=== PATIENT | male | born 1950 | race Hispanic/Latino ===

== ENCOUNTER 2018-05-11 11:36 | Inpatient (IN) | payer MEDICARE, MEDICAID ==
[2018-04-09 09:51] VITALS: BMI 33.6
[2018-05-11] MEDS ORDERED: Bupivacaine 0.5% Inj(30mL) ONE ×2 (12:06→12:55)
[2018-05-11] MEDS ORDERED: Propofol 10 mg/ml Inj (20 ML) ONE (13:22)
[2018-05-11] MEDS ORDERED: Succinylcholine 200 mg/10 ml Inj IV ONE (13:22)
[2018-05-11] MEDS ORDERED: Midazolam 2 MG/2 ML VIAL ONE (13:22)
[2018-05-11] MEDS ORDERED: Rocuronium 10 mg/ml (5 ml) ONE (13:34)
[2018-05-11] MEDS ORDERED: Bupivacaine 0.25% Inj(30mL) ONE (13:40)
[2018-05-11] MEDS ORDERED: Bupivacaine 0.5% Inj(30mL) IJ ONE (14:01)
[2018-05-11] MEDS ORDERED: Neostigmine Methylsulfate 3mg/3ml Syringe IV ONE ×2 (14:44→14:57)
[2018-05-11] MEDS ORDERED: HYDROmorphone 0.5 mg/0.5 ml ISec IVP PRN (15:01)
--- NOTE | 2018-05-11 15:03 | PCM.SURG1 ---
Surgeon's Initial Post Op Note - Surgeon's Notes Surgeon: Dr. Anderson Sales Assistant Displays: Ashley rainey, PGY 2 Magaly Burden PGY1 Kodi Piper MS3 Type of Anesthesia: General Endo Pre-Operative Diagnosis: Umbilical hernia Operative Findings: same Post-Operative Diagnosis: umbilical hernia repair Operation Performed: umbilical hernia reapir with mesh Specimen/Specimens Removed: hernia sac Estimated Blood Loss: EBL {In ML}: 5 Blood Products Given: N/A Drains Used: Rola (red rubber catheter not rola) Post-Op Condition: Fair Date of Surgery/Procedure: 05/11/18 Time of Surgery/Procedure: 13:30
[2018-05-11] MEDS ORDERED: Morphine 4 mg/ml ISec IVP PRN (15:09)
[2018-05-11] MEDS: Insulin Reg-MEDIUM-Coverage SC SCH (17:00)
[2018-05-11] MEDS: Lactated Ringer's 1,000 ML IV SCH (18:08)
[2018-05-11] MEDS ORDERED: Albuterol-Ipratrop 3 mg / 0.5 (3 ml) UD IH SCH (20:00)
[2018-05-11] MEDS: Divalproex 250 mg ER (ONCE DAILY formulation) PO SCH (21:42)
[2018-05-11] MEDS: Insulin Detemir 100 units/ml Vial (Levemir) SC SCH (21:42)
[2018-05-11] MEDS: Enoxaparin 30 mg Syringe SC SCH (21:42)
[2018-05-11] MEDS ORDERED: Pneumococcal 23-Valent Vaccine IM ONE (23:17)
[2018-05-12] MEDS: Insulin Reg-MEDIUM-Coverage SC SCH ×4 (02:33→17:17)
[2018-05-12 07:37] LABS: BASO # 0.03 K/mm3 (0.0-2.0); BASO % 0.2 % (0.0-3.0); EOS # 0.1 (0.0-0.7); EOS % 0.7 % (1.5-5.0); GRAN # 9.07 (1.4-6.5); GRAN % 75.5 % (50.0-68.0); HEMOGLOBIN 12.7 g/dL (14.0-18.0); LYMPH # 1.5 (1.2-3.4); LYMPH % 12.2 % (22.0-35.0); MEAN CELL VOLUME 88.9 fl (80.0-105.0); MEAN CORPUSCULAR HEMOGLOBIN 28.7 pg (25.0-35.0); MEAN CORPUSCULAR HGB CONC 32.3 g/dl (31.0-37.0); MEAN PLATELET VOLUME 8.5 fl (7.0-11.0); MONO # 1.4 (0.1-0.6); MONO % 11.4 % (1.0-6.0); RBC 4.42 10^6/uL (3.5-6.1); RED CELL DISTRIBUTION WIDTH 14.2 % (11.5-14.5)
[2018-05-12 07:48] LABS: BLOOD UREA NITROGEN 14 mg/dL (7-21); CALCIUM 9.1 mg/dL (8.4-10.5); GFR AFRICAN-AMERICAN > 60; GFR NON-AFRICAN AMERICAN > 60; HDL CHOLESTEROL 34 mg/dL (29-60)
[2018-05-12 07:49] LABS: IRON 38 ug/dL (45-180)
[2018-05-12 07:58] LABS: % IRON SATURATION 12 % (20-55); LDL CHOLESTEROL 80 mg/dL (0-129); TOTAL IRON BINDING CAPACITY 321 ug/dL (261-462)
[2018-05-12] MEDS: Insulin Detemir 100 units/ml Vial (Levemir) SC SCH ×2 (08:08→22:49)
--- NOTE | 2018-05-12 08:22 | HP ---
DATE OF EXAM: 05/11/2018 The patient is a 67-year-old male. The patient was seen and examined on the bedside by me on 05/11/2018. CHIEF COMPLAINTS: Abdominal pain, anterior abdominal wall hernia. HISTORY OF PRESENT ILLNESS: Mr. Navarro Rudolph is a 67-year-old male with past medical history of hypertension, history of COPD, asthma, BPH, diabetes mellitus, depression, hypercholesterolemia and hypertriglyceridemia, came to [facility] for surgery by Dr. Kirill Anderson. Surgery is done. I saw the patient. He is having abdominal pain. Hungry, wanted to eat. Liquid diet offered. Patient has history of asthma, but right now, no shortness of breath, sometime coughing. No fever, no chills. PAST MEDICAL HISTORY: As above, history of depression, diabetes mellitus, hypertension, hypercholesterolemia, hypertriglyceridemia, vitamin D deficiency. ALLERGIES: PATIENT IS NOT ALLERGIC WITH ANY MEDICATION. FAMILY HISTORY: Father and mother, noncontributory. HABITS: Smoking, yes. Drugs, no. Ethanol, no. REVIEW OF SYSTEMS: The patient was seen and examined on the bedside. Looking comfortable. Hungry. Complaining about abdominal pain. Having a dressing applied on the abdomen. No fever. No chills. No nausea, vomiting or diarrhea. No hematuria or hematochezia. No headache or dizziness. No chest pain. No palpitation. PHYSICAL EXAMINATION: VITAL SIGNS: Temperature 98.2, pulse 81 , respiratory rate 18, blood pressure 134/72. HEENT: Head, normocephalic and atraumatic. Eyes, PERRLA. Extraocular muscles intact. Conjunctivae clear. Nose patent. Mucous membranes moist. NECK: Supple. No carotid bruits. No JVD or thyromegaly. CHEST: Bilaterally symmetrical. HEART: S1 and S2 positive. LUNGS: Clear to auscultation. ABDOMEN: Soft. Tender. Surgical site has dressing on that. No organomegaly. EXTREMITIES: No edema. No cyanosis. NEUROLOGIC: The patient is awake and alert. Moving all 4 extremities. No focal deficits. LABORATORY DATA: Blood sugar is 139, we do not have more labs, we will repeat labs. MEDICATIONS: Patient is on Colace, Cozaar, Depakote, vitamin D, DuoNeb, Flomax, Ventolin, insulin, Levemir, Lexapro, Lipitor, gemfibrozil, Lovenox, morphine, Singulair, Wellbutrin, Zofran and tramadol. ASSESSMENT AND PLAN: Mr. Navarro Rudolph is a 67-year-old male, my private patient from [facility], resident, has history of constipation, hypertension, history of depression, vitamin D deficiency, chronic obstructive pulmonary disease, asthma, benign prostatic hypertrophy, insulin-dependent diabetes mellitus that is why he is on Levemir and sliding scale, hypercholesterolemia, history of allergies and nauseousness, patient came for surgery, done by Dr. Kirill Anderson, repair of the incarcerated ventral hernia with mesh placement off and on acute pain relief system, another was hernia repair ventral big mesh. Gastrointestinal, deep venous thrombosis prophylaxis. Noted Dr. Kirill Anderson' reporting. Out of bed, physical therapy. Diet as tolerated. We will repeat labs. We will follow up. Sarah Young MD
[2018-05-12] MEDS: Enoxaparin 30 mg Syringe SC SCH ×2 (10:49→22:49)
[2018-05-12] MEDS: buPROPion 300 mg/24 Hours XL Tab PO SCH (11:09)
[2018-05-12] MEDS: Divalproex 250 mg ER (ONCE DAILY formulation) PO SCH ×2 (11:10→18:39)
[2018-05-12] MEDS: FLUTICASONE IH SCH (11:57)
[2018-05-12] MEDS: VILANTEROL IH SCH (11:57)
--- NOTE | 2018-05-12 12:22 | CP.PCM.PN ---
Subjective - Date & Time of Evaluation Date of Evaluation: 05/12/18 Time of Evaluation: 09:30 - Subjective Subjective: Pt seen examined at bedside this AM. patient denies any SOB, chest pain, and minimal abdominal pain, no nausea, vomiting, and tolerated CLD well Objective - Vital Signs/Intake and Output Vital Signs (last 24 hours): Temp Pulse Resp BP Pulse Ox 98 F 76 20 115/65 95 05/12/18 06:00 05/12/18 10:50 05/12/18 06:00 05/12/18 10:50 05/12/18 06:00 Intake and Output: 05/12/18 05/12/18 06:59 18:59 Intake Total 480 Output Total 1500 Balance -1020 - Medications Medications: Current Medications Albuterol/Ipratropium (Duoneb 3 Mg/0.5 Mg (3 Ml) Ud) 3 ml IH BIDRESP BÁRBARA Atorvastatin Calcium (Lipitor) 5 mg PO DAILY [facility] Last Admin: 05/12/18 10:48 Dose: 5 mg Bupropion HCl (Wellbutrin Xl) 300 mg PO QAM [facility] Last Admin: 05/12/18 11:09 Dose: 300 mg Divalproex Sodium (Depakote Er(Once Daily)) 250 mg PO BID BÁRBARA PRN Reason: Protocol Last Admin: 05/12/18 11:10 Dose: 250 mg Docusate Sodium (Colace) 100 mg PO DAILY [facility] Last Admin: 05/12/18 10:49 Dose: 100 mg Enoxaparin Sodium (Lovenox) 30 mg SC 1000,2200 [facility] PRN Reason: Protocol Last Admin: 05/12/18 10:49 Dose: 30 mg Ergocalciferol (Drisdol 50,000 Intl Units Cap) 1 cap PO Th@1000 [facility] Escitalopram Oxalate (Lexapro) 20 mg PO DAILY [facility] Last Admin: 05/12/18 10:49 Dose: 20 mg Gemfibrozil (Lopid) 600 mg PO BID [facility] Last Admin: 05/12/18 10:50 Dose: 600 mg Insulin Detemir (Levemir) 7 unit SC ACBHS [facility] Last Admin: 05/12/18 08:08 Dose: 7 units Insulin Human Regular (Humulin R Med) 0 units SC ACHS [facility] PRN Reason: Protocol Last Admin: 05/12/18 08:08 Dose: 1 units Losartan Potassium (Cozaar) 50 mg PO DAILY [facility] Last Admin: 05/12/18 10:50 Dose: 50 mg Montelukast Sodium (Singulair) 10 mg PO HS [facility] Last Admin: 05/11/18 21:40 Dose: 10 mg Non-Formulary Medication (Fluticasone/Vilanterol [Breo Ellipta 100-25 Mcg Inh]) 1 inh IH DAILY [facility] Last Admin: 05/12/18 11:57 Dose: Not Given Ondansetron HCl (Zofran Inj) 4 mg IVP Q6H PRN PRN Reason: Nausea/Vomiting Tamsulosin HCl (Flomax) 0.4 mg PO DAILY [facility] Last Admin: 05/12/18 10:49 Dose: 0.4 mg Tramadol HCl (Ultram) 50 mg PO Q6H PRN PRN Reason: Pain, moderate (4-7) - Labs Labs: 05/12/18 07:00 05/12/18 07:00 - Constitutional Appears: Well, Non-toxic, No Acute Distress - Head Exam Head Exam: ATRAUMATIC, NORMOCEPHALIC - Eye Exam Eye Exam: Normal appearance. absent: Conjunctival injection, Scleral icterus - ENT Exam ENT Exam: Mucous Membranes Moist, Normal Oropharynx - Respiratory Exam Respiratory Exam: NORMAL BREATHING PATTERN. absent: Accessory Muscle Use, Respiratory Distress - Cardiovascular Exam Cardiovascular Exam: RRR - GI/Abdominal Exam GI & Abdominal Exam: Soft, Tenderness (mild tenderness around the incision). absent: Distended Additional comments: midline incisional dressing saturated with sero-sanguinous fluid, incision well approximated with daly, On q in place - Extremities Exam Extremities Exam: absent: Calf Tenderness, Pedal Edema - Neurological Exam Neurological Exam: Alert, Awake, Oriented x3 - Psychiatric Exam Psychiatric exam: Normal Affect, Normal Mood - Skin Skin Exam: Dry, Normal Color, Warm Assessment and Plan - Assessment and Plan (Free Text) Assessment: 67M POD#1 s/p umbilical hernia with mesh. History of COPD, HTN, DM, and obesity Plan: Patient recovering well with continuing concern for respiratory status post operatively considering patient's poor baseline pulmonary function. Plan to keep patient overnight, monitor diet tolerance and ensure ambulation and pain control F/U pulmonary and medicine recs--appreciated advance to HHD/CCD D/C acosta--will monitor for voiding afterwards Discussed with Dr. Justin Sanches, PGY2
[2018-05-12] MEDS: Albuterol-Ipratrop 3 mg / 0.5 (3 ml) UD IH SCH ×2 (12:33→20:10)
[2018-05-12 12:35] LABS: FOLATE 13.8 ng/mL
[2018-05-12] MEDS: Lactated Ringer's 1,000 ML IV SCH (20:39)
[2018-05-12 23:14] VITALS: O2SAT 96
--- NOTE | 2018-05-13 01:17 | CON ---
DATE: 05/12/2017 PULMONARY CONSULTATION REFERRING PHYSICIAN: Dr. Anderson. REASON FOR CONSULTATION: Chronic obstructive lung disease, obstructive sleep apnea syndrome. HISTORY OF PRESENT ILLNESS: This is a 67-year-old gentleman, who is known to me from office and previous admission, status post hernia repair, active smoker, chronic lung disease, hypertension, BPH, diabetes, history of depression, sitting up in a chair, nursing staff at bedside, wants to go home. Does have a cough and shortness of breath. No chest pain. Mild abdominal discomfort. No dysuria. PAST MEDICAL HISTORY: Chronic obstructive lung disease, hypertension, diabetes, depression, hyperlipidemia, sleep apnea syndrome, vitamin D deficiency, status post hernia repair. ALLERGIES: NONE KNOWN. SOCIAL HISTORY: Active smoker. Denies any alcohol use. FAMILY HISTORY: No significant cardiopulmonary disease reported. MEDICATIONS: He is on Colace 100 mg daily, Cozaar 50 mg daily, Depakote 250 mg twice a day, vitamin D 50,000 units weekly, DuoNeb twice a day, Flomax 0.4 mg daily, getting Breo Ellipta 1 puff daily, Levemir 7 units subcu a.c.b, Lexapro 20 mg daily, Lipitor 5 mg daily, Lopid 600 mg twice a day, Lovenox 30 mg subcu twice a day, Singulair 10 mg daily, Ultram 50 mg every 6 hours p.r.n., Wellbutrin XL 300 mg daily, Zofran on p.r.n. basis. REVIEW OF SYSTEM: No headache, no rhinitis. Has some cough and shortness of breath. No chest pain. discomfort. No dysuria. No leg pain or leg swelling. PHYSICAL EXAMINATION: GENERAL: No acute distress. VITAL SIGNS: Temperature is 99, heart rate 67, respiratory rate 18, blood pressure 118/65, pulse ox 96% on 2 liters nasal canula. HEENT: Moist mucous membrane. Crowded airway. NECK: Supple. No JVD. LUNGS: Have prolonged expiratory phase with few rhonchi. HEART: S1 and S2. ABDOMEN: Has a dressing on incision site, large belly, soft. EXTREMITIES: There is not much edema. NEUROLOGIC: Awake and alert. Follows simple commands. LABORATORY DATA: Shows hemoglobin 12.7, hematocrit 39.3, WBC 12, platelet is 303. Sodium 139, potassium 4.3, chloride of 98, bicarbonate 31, BUN 14, creatinine 0.9, glucose is 139, hemoglobin A1c 8.4, calcium 9.1, phosphorus 3.1, magnesium 2.2. Iron 38. Triglyceride 271. B12 of 449. Folate is 13.8. IMPRESSION AND PLAN: Status post ventral hernia repair, chronic obstructive lung disease, obesity, depression, diabetes, hypertension, hyperlipidemia, sleep apnea syndrome. Case discussed with nursing staff. Agree with the present treatment. We will place him on bilevel positive airway pressure while sleeping. May give him Ambien p.r.n. for night, inhaled bronchodilator, Nicoderm patch, surgical followup, out of bed to chair. Gastric and deep venous thrombosis prophylaxis. Thank you and we will follow with you. Alan Farmer MD
[2018-05-13 06:47] LABS: HEMOGLOBIN 12.4 g/dL (14.0-18.0); MEAN CELL VOLUME 87.5 fl (80.0-105.0); MEAN CORPUSCULAR HEMOGLOBIN 28.8 pg (25.0-35.0); MEAN CORPUSCULAR HGB CONC 32.9 g/dl (31.0-37.0); MEAN PLATELET VOLUME 8.4 fl (7.0-11.0); RBC 4.31 10^6/uL (3.5-6.1); RED CELL DISTRIBUTION WIDTH 14.1 % (11.5-14.5); WHITE BLOOD COUNT 10.2 10^3/ul (4.5-11.0)
[2018-05-13 06:59] LABS: BLOOD UREA NITROGEN 13 mg/dL (7-21); CALCIUM 9.2 mg/dL (8.4-10.5); GFR AFRICAN-AMERICAN > 60; GFR NON-AFRICAN AMERICAN > 60
[2018-05-13] MEDS: Albuterol-Ipratrop 3 mg / 0.5 (3 ml) UD IH SCH (07:34)
--- NOTE | 2018-05-13 08:10 | PN ---
DATE: 05/12/2018 SUBJECTIVE: The patient was seen and examined on the bedside, looking comfortable, hungry, and tolerated clear liquid diet. Minimal abdominal pain. No hematuria or hematochezia. No swelling of the leg. No headache, no dizziness. PHYSICAL EXAMINATION: VITAL SIGNS: Temperature 98, pulse 76, respiratory rate 20, blood pressure 115/65, pulse oximetry 95. HEENT: Head; normocephalic, atraumatic. Eyes; PERRLA. Extraocular muscles intact. Conjunctivae clear. Nose patent. Mucous membranes moist. NECK: Supple. No carotid bruit. No JVD or thyromegaly. CHEST: Bilaterally symmetrical. HEART: S1 and S2 positive. LUNGS: Clear to auscultation. ABDOMEN: Soft. Tender at surgical place. Having binder. EXTREMITIES: No edema. No cyanosis. NEUROLOGICAL: Patient is awake and alert. Moving all 4 extremities. No focal deficits. MEDICATIONS: Albuterol, Lipitor, Wellbutrin, Depakote, Colace, Lovenox, vitamin D, Lopid, Levemir, insulin, Cozaar, Zofran, Flomax, tramadol. LABORATORY DATA: White blood cells 12, hemoglobin 12.7, hematocrit 39.3, platelets 303. Sodium 139, potassium 4.3, BUN 14, creatinine 0.9, glucose 200. ASSESSMENT AND PLAN: Mr. Navarro Rudolph is a 67-year-old male, postoperative day 1 status post umbilical hernia with mesh, history of chronic obstructive pulmonary disease, hypertension, diabetes mellitus, obesity, hyperglycemia, leukocytosis, anemia, benign prostatic hypertrophy, hypercholesterolemia, hypertriglyceridemia, history of constipation, asthma, obesity. Patient is recovering well with continuing concern for. Diet tolerated. Clinical therapy. Followup with the pulmonary and surgical appreciated. History of blood in the urine and the patient was not able to pass the urine. Getting IV fluid. Gastrointestinal and deep venous thrombosis prophylaxis. Repeat labs. We will follow up. Sarah Young MD [place]
[2018-05-13] MEDS: Insulin Detemir 100 units/ml Vial (Levemir) SC SCH (08:24)
[2018-05-13] MEDS: Insulin Reg-MEDIUM-Coverage SC SCH ×2 (08:25→12:18)
[2018-05-13 09:55] VITALS: RESP 20; TEMP 98.4
[2018-05-13] MEDS: Divalproex 250 mg ER (ONCE DAILY formulation) PO SCH (09:55)
[2018-05-13] MEDS: Enoxaparin 30 mg Syringe SC SCH (09:55)
[2018-05-13] MEDS: VILANTEROL IH SCH (09:56)
[2018-05-13] MEDS: FLUTICASONE IH SCH (09:56)
[2018-05-13] MEDS ORDERED: Ergocalciferol 50,000 Intl Units Cap PO SCH (10:00)
[2018-05-13] MEDS: buPROPion 300 mg/24 Hours XL Tab PO SCH (10:03)
[2018-05-13 10:12] VITALS: BP 146/84; PULSE 90
--- NOTE | 2018-05-13 15:43 | CP.PCM.DIS ---
Provider - Provider Date of Admission: 05/11/18 15:32 Attending physician: Kirill Anderson MD Primary care physician: Sarah Young MD Time Spent in preparation of Discharge (in minutes): 35 Diagnosis - Discharge Diagnosis (1) Umbilical hernia Status: Acute Priority: High Comment: s/p surgical repair (2) COPD (chronic obstructive pulmonary disease) Status: Chronic (3) Diabetes mellitus Status: Chronic (4) Obesity (BMI 30-39.9) Status: Chronic (5) Sleep apnea in adult Status: Chronic Hospital Course - Lab Results Lab Results: Micro Results 05/12/18 09:30 Urine Urine Culture - Preliminary Gram Positive Cocci Most Recent Lab Values WBC 10.2 10^3/ul (4.5-11.0) 05/13/18 06:20 RBC 4.31 10^6/uL (3.5-6.1) 05/13/18 06:20 Hgb 12.4 g/dL (14.0-18.0) L 05/13/18 06:20 Hct 37.7 % (42.0-52.0) L 05/13/18 06:20 MCV 87.5 fl (80.0-105.0) 05/13/18 06:20 MCH 28.8 pg (25.0-35.0) 05/13/18 06:20 MCHC 32.9 g/dl (31.0-37.0) 05/13/18 06:20 RDW 14.1 % (11.5-14.5) 05/13/18 06:20 Plt Count 288 10^3/uL (120.0-450.0) 05/13/18 06:20 MPV 8.4 fl (7.0-11.0) 05/13/18 06:20 Gran % 75.5 % (50.0-68.0) H 05/12/18 07:00 Lymph % (Auto) 12.2 % (22.0-35.0) L 05/12/18 07:00 [place] % (Auto) 11.4 % (1.0-6.0) H 05/12/18 07:00 Eos % (Auto) 0.7 % (1.5-5.0) L 05/12/18 07:00 Baso % (Auto) 0.2 % (0.0-3.0) 05/12/18 07:00 Gran # 9.07 (1.4-6.5) H 05/12/18 07:00 Lymph # (Auto) 1.5 (1.2-3.4) 05/12/18 07:00 [place] # (Auto) 1.4 (0.1-0.6) H 05/12/18 07:00 Eos # (Auto) 0.1 (0.0-0.7) 05/12/18 07:00 Baso # (Auto) 0.03 K/mm3 (0.0-2.0) 05/12/18 07:00 Sodium 141 mmol/L (132-148) 05/13/18 06:20 Potassium 4.1 mmol/L (3.6-5.0) 05/13/18 06:20 Chloride 100 mmol/L (98-107) 05/13/18 06:20 Carbon Dioxide 30 mmol/L (21-33) 05/13/18 06:20 Anion Gap 15 (10-20) 05/13/18 06:20 BUN 13 mg/dL (7-21) 05/13/18 06:20 Creatinine 0.8 mg/dl (0.8-1.5) 05/13/18 06:20 Est GFR ( Amer) > 60 05/13/18 06:20 Est GFR (Non-Af Amer) > 60 05/13/18 06:20 POC Glucose (mg/dL) 202 mg/dL (65-110) H 05/13/18 11:13 Random Glucose 188 mg/dL (70-110) H 05/13/18 06:20 Hemoglobin A1c 8.4 % (4.2-6.5) H 05/12/18 07:00 Calcium 9.2 mg/dL (8.4-10.5) 05/13/18 06:20 Phosphorus 3.1 mg/dL (2.5-4.5) 05/12/18 07:00 Magnesium 2.2 mg/dL (1.7-2.2) 05/12/18 07:00 Iron 38 ug/dL (45-180) L 05/12/18 07:00 TIBC 321 ug/dL (261-462) 05/12/18 07:00 % Saturation 12 % (20-55) L 05/12/18 07:00 Triglycerides 271 mg/dL (35-160) H 05/12/18 07:00 Cholesterol 161 mg/dL (130-200) 05/12/18 07:00 LDL Cholesterol Direct 80 mg/dL (0-129) 05/12/18 07:00 HDL Cholesterol 34 mg/dL (29-60) 05/12/18 07:00 Vitamin B12 449 pg/mL (239-931) 05/12/18 07:00 Folate 13.8 ng/mL 05/12/18 07:00 TSH 3rd Generation 1.11 mIU/mL (0.46-4.68) 05/13/18 06:20 - Hospital Course Hospital Course: patient is a 67M with PMH of COPD with very poor PFT's, DM, Morbid obesity, HTN , residing at [facility], who underwent an umbilical hernia repair in the OR and was admitted for observation d/t chronic poor respiratory status. Primary physician Dr. Young was consulted as well as pulmonology, Dr. Farmer who recommended BIPAP at night. Patient recovered well and by post op day 2 was breathing well, having normal bowel and bladder function, and was at normal functional status. Patient was discharged to [facility] with plans to follow up with Dr. Anderson as an outpatient For full hospital course, please see chart Discharge Exam - Head Exam Head Exam: ATRAUMATIC, NORMOCEPHALIC - Eye Exam Eye Exam: Normal appearance. absent: Conjunctival injection, Scleral icterus - ENT Exam ENT Exam: Mucous Membranes Moist, Normal Oropharynx - Respiratory Exam Respiratory Exam: NORMAL BREATHING PATTERN, UNREMARKABLE. absent: Accessory Muscle Use, Respiratory Distress - Cardiovascular Exam Cardiovascular Exam: RRR - GI/Abdominal Exam GI & Abdominal Exam: Distended, Soft. absent: Tenderness Additional comments: incision well approximated with daly, fluid swelling in the umbilicus, no erythema - Neurological Exam Neurological exam: Alert, Oriented x3 - Psychiatric Exam Psychiatric exam: Agitated, Normal Affect - Skin Skin Exam: Dry, Normal Color, Warm Discharge Plan - Discharge Medications Prescriptions: traMADol [Ultram] 50 mg PO TID PRN #15 tab PRN Reason: Pain, Severe (8-10) - Follow Up Plan Condition: GOOD Disposition: HOME/ ROUTINE Instructions: Smoking: Not Just Harmful to Your Lungs and Heart, Depression, Adult (DC), Anxiety, Adult (DC), Hernia Repair (DC), Quitting Smoking Additional Instructions: Take medications as directed. Follow up with primary care provider. Follow up with Dr. Anderson. Return to Local ER if symptoms worsen. Referrals: Sarah Young MD [Primary Care Provider] - Kirill Anderson MD [Staff Provider] -
--- NOTE | 2018-05-13 18:08 | PN ---
DATE: 05/13/2018 PULMONARY PROGRESS NOTE REFERRING PHYSICIAN: Sarah Young MD. SUBJECTIVE : He is out of bed to chair. Night was unremarkable. Tolerated BiPAP well. Breathing is okay. No nausea. No vomiting. Mild incision site discomfort. No leg pain. No leg swelling. OBJECTIVE: GENERAL: In no acute distress. VITAL SIGNS: Temperature is 98, heart rate is 90, respiratory rate is 20, blood pressure 146/84, pulse ox 96% on 2 L nasal cannula. HEENT: Moist mucous membrane. Crowded airway. Mallampati score is 4. NECK: Supple. No JVD. LUNGS: Have a fair airflow with few rhonchi. HEART: S1 and S2. ABDOMEN: Soft. Mild tenderness at incision site. EXTREMITIES: There is no edema. NEUROLOGICAL: Awake and alert. Follows simple command. MEDICATIONS: Reviewed. No new changes reported. LABORATORY DATA: Review shows hemoglobin 12.4, hematocrit 37.7, WBC 10.2, platelet is 288. Sodium 141, potassium 4.1, chloride 100, bicarbonate 30, BUN 13, creatinine 0.8, glucose 188, calcium 9.2. TSH 1.1. Laboratory data shows urine has some gram-positive cocci. IMPRESSION AND PLAN: Status post hernia repair, chronic obstructive lung disease, obesity, depression, diabetes, hypertension, hyperlipidemia, sleep apnea syndrome. Pulmonary point of view, doing okay. Continue bilevel positive airway pressure while sleeping, keep head at 45 degrees. Bronchodilator. The patient is urged to stop smoking. Pulmonary status stable. Thank you and we will follow with you. Alan Farmer MD
--- NOTE | 2018-05-24 06:36 | OP ---
PROCEDURE DATE: 05/11/2018 SURGEON: Kirill Anderson MD. SLITTING MACHINE OPERATOR: Ashley Sanches DO, PGY-2. SECOND STATISTICAL CLERK ADVERTISING: Magaly Burden DO, PGY-1. ANESTHESIA ADMINISTERED BY: Juan Carlos Barrett MD. PREOPERATIVE DIAGNOSES: 1. Incarcerated ventral hernia. 2. Severe chronic obstructive pulmonary disease. 3. Morbid obesity. 4. Hypertensive coronary artery disease. POSTOPERATIVE DIAGNOSES: 1. Incarcerated ventral hernia. 2. Severe chronic obstructive pulmonary disease. 3. Morbid obesity. 4. Hypertensive coronary artery disease. PROCEDURES: 1. Ventral herniorrhaphy with Ventralex 3-1/2 inch mesh. 2. On-Q pain pump insertion. OPERATIVE INDICATIONS: The patient is a 67-year-old morbidly obese male who for the past year has been having increasingly symptomatic discomfort from this extremely large umbilical and ventral mass that is not really reducible. The patient is extremely overweight and has lost approximately 25 pounds at the continued insistence of the surgeon and has undergone cardiac and pulmonary evaluation. He is cardiac cleared, has extremely high risk pulmonary insufficiency with obstructive sleep apnea and is able to cut down his cigarette smoking, but cannot completely remove it, even though he says he is down to one cigarette a day, it is obvious that he is unable to stop the smoking. Due to the increasing changes in the skin over the hernia and more and more pain involved, the patient is now brought for semi-urgent repair of this ventral hernia and hopeful placement of a large mesh, so that the hernia will not recur as easily. Risks, benefits and alternatives were explained and the patient signs the informed consent and presents to the same day surgery unit with medical clearance. OPERATIVE NOTE: The patient is brought to the operating room from the same day holding area. He is identified by his wristband and undergoes time-out procedure. Following this, he is placed on the operative table in a supine manner and undergoes the induction of general anesthesia with the insertion of an endotracheal tube. The patient has placement of sequential compression devices on his lower extremities for DVT prophylaxis and a Flood catheter is inserted due to the fact that the patient has a chronic history of overflow incontinence and benign prostatic hypertrophy. After inserting the catheter and obtaining 650 mL of a mildly turbid fluid, cultures were sent to the laboratory for correction of same and cultures and sensitivity. It is agreed upon at this point that the catheter will remain for several days postoperatively because of the possibility of the patient is being unable to void. The patient will be staying overnight at least and possibly several days due to his chronic pulmonary condition and we are unclear whether he will tolerate the anesthetic and he could be able to breathe adequately postoperatively. The abdomen is electrically clipped, prepped with Hibiclens chlorhexidine preparation and the patient is then aseptically draped. A curvilinear incision is made above the umbilicus in the epigastrium area and sharp dissection carried down through the subcutaneous tissues down to the anterior midline fascia and hemostasis is contained with cautery. At this point, the hernia sac is then free from the anterior skin of the abdominal wall and the hernia sac is then sharply lysed with cautery scalpel coagulation current and completely circumferentially removed. It is submitted to pathology at this point in formalin. The incarcerated omentum without apparent bowel involvement is carefully freed and reduced into the peritoneal cavity. It is elected at this point to place a large Ventralex composite mesh into the peritoneal cavity and pulled up to the anterior abdominal wall. The anterior fascia is now closed with interrupted 0 Prolene [id number] sutures to close the fascia over the mesh and secured to the anterior abdominal wall. An On-Q catheter is inserted on either side lateral to the midline incision and it is secured with Dermabond adhesive flushed with bupivacaine and attached to the On-Q perfusion system. Subcutaneous closure of 3-0 Polysorb suture is employed and the skin is closed with the AutoSuture skin stapler. A 10-Mongolian rubber catheter is inserted into the incision and secured to the dressing with AutoSuture daly to prevent the catheter from slipping into the incision and will evacuate any accumulating fluids above the incision. A dry dressing is now placed still the same. The patient is awakened and is spontaneously breathing adequately with oxygen saturation levels of 92% at the end of the procedure. He will be transferred to the recovery room and then put on extended observation or admission pending his clinical course. Sponge, instrument and suture count were verified as correct at the end of the procedure. Estimated blood loss during this procedure was less than 35 mL of blood. This dictation will be electronically signed without being read. The surgical assistants were present throughout the procedure from beginning to end and were extremely helpful in the exposure and participating in the surgical repair. Kirill Anderson MD [facility] # [phone]
== END 2018-05-13 16:19 | disposition home or self-care (01) | DRG 355 ==
LOC: SDS 11:36 → 5RNO 11:40 → UNDOADMIN 11:40 → 5RNO 15:32 → UNDOADMIN 05-12 09:00 → 5RNO 05-12 09:00 → UNDODISIN 05-13 16:19
PROVIDERS: ADMIT Surgery; ATTEND Surgery
PROC: 0WUF0JZ Supplement Abdominal Wall with Synthetic Substitute, Open Approach (ICD-10-PCS; principal; 2018-05-11 13:30)
DX: K43.6 Other and unspecified ventral hernia with obstruction, without gangrene (principal); J44.9 Chronic obstructive pulmonary disease, unspecified; E11.9 Type 2 diabetes mellitus without complications; Z68.30 Body mass index [BMI] 30.0-30.9, adult; G47.33 Obstructive sleep apnea (adult) (pediatric); E78.00 Pure hypercholesterolemia, unspecified; E78.1 Pure hyperglyceridemia; F17.200 Nicotine dependence, unspecified, uncomplicated; I10 Essential (primary) hypertension; N40.0 Benign prostatic hyperplasia without lower urinary tract symptoms; Z79.4 Long term (current) use of insulin; E78.5 Hyperlipidemia, unspecified; E66.01 Morbid (severe) obesity due to excess calories; F17.210 Nicotine dependence, cigarettes, uncomplicated; I25.10 Atherosclerotic heart disease of native coronary artery without angina pectoris; J98.4 Other disorders of lung

== ENCOUNTER 2018-05-31 21:49 | Emergency (ER) | payer MEDICARE, MEDICAID ==
[2018-05-31 22:02] VITALS: BMI 36.7
--- NOTE | 2018-05-31 22:46 | ED PDOC ---
Arrival/HPI - General Chief Complaint: Trauma Time Seen by Provider: 05/31/18 21:53 Historian: Patient - History of Present Illness Narrative History of Present Illness (Text): 05/31/18 22:42 A 67 year old male, whose past medical history includes hypertension, COPD, diabetes, depression, hyerlipidemia, recent umbilical hernia repair, presets to the emergency department for further evaluation of an episode of dizziness causing the patient to fall. The patient states that he feels generally weak. According to prison history, patient with 2 episodes of vomiting prior to arrival to the emergency department. The patient denies fevers, chills, headache , sore throat, cough, chest pain, shortness of breath, dyspnea on exertion, abdominal pain, nausea,diarrhea, neck/back pain, urinary/bowel changes or any other complaint. PMD: Dr. Young Time/Duration: Prior to Arrival Symptom Onset: Sudden Symptom Course: Unchanged Activities at Onset: Rest, Light Context: Home (Senior Care) Past Medical History - Provider Review Nursing Documentation Reviewed: Yes - Infectious Disease Hx of Infectious Diseases: None - Cardiac Hx Cardiac Disorders: Yes Hx Hypertension: Yes - Pulmonary Hx Respiratory Disorders: Yes Hx Chronic Obstructive Pulmonary Disease (COPD): Yes - Neurological Hx Neurological Disorder: No - HEENT Hx HEENT Disorder: No - Renal Hx Renal Disorder: No - Endocrine/Metabolic Hx Endocrine Disorders: Yes Hx Diabetes Mellitus Type 2: Yes - Hematological/Oncological Hx Blood Disorders: Yes Hx Cancer: Yes (skin) - Integumentary Hx Dermatological Disorder: Yes (BILATERAL LEG EDEMA +1,DARKEND BROWN SKIN DISCOLORATION) Other/Comment: Skin Ca - Musculoskeletal/Rheumatological Hx Musculoskeletal Disorders: Yes Hx Falls: Yes - Gastrointestinal Hx Gastrointestinal Disorders: No - Genitourinary/Gynecological Hx Genitourinary Disorders: No - Psychiatric Hx Psychophysiologic Disorder: Yes (HOARDING) Hx Depression: Yes Hx Substance Use: No - Surgical History Other/Comment: Skin Ca removed from face. - Anesthesia Hx Anesthesia Reactions: No Hx Malignant Hyperthermia: No - Suicidal Assessment Feels Threatened In Home Enviroment: No Family/Social History - Physician Review Nursing Documentation Reviewed: Yes Family/Social History: No Known Family HX Smoking Status: Current Some Days Smoker Hx Alcohol Use: No Hx Substance Use: No Hx Substance Use Treatment: No Allergies/Home Meds Allergies/Adverse Reactions: Allergies No Known Allergies Allergy (Verified 05/31/18 22:02) Home Medications: Home Meds Medication Instructions Recorded Confirmed Albuterol/Ipratropium [Combivent 1 puff IH BID 04/09/18 05/11/18 Respimat] Atorvastatin [Lipitor] 5 mg PO DAILY 04/09/18 05/11/18 Cholecalciferol (Vitamin D3) 50,000 unit PO PABLO 04/09/18 05/11/18 [Vitamin D3] Divalproex [Depakote ER] 250 mg PO BID 04/09/18 05/11/18 Escitalopram [Lexapro] 20 mg PO DAILY 04/09/18 05/11/18 Fluticasone/Vilanterol [Breo 1 inh IH DAILY 04/09/18 05/11/18 Ellipta 100-25 Mcg INH] Gemfibrozil [Lopid] 600 mg PO BID 04/09/18 05/11/18 GlipiZIDE SR [Glucotrol XL] 10 mg PO DAILY 04/09/18 05/11/18 Insulin Glargine,Hum.rec.anlog 14 unit SQ [facility] 04/09/18 05/11/18 [Toujeo Solostar] Losartan [Cozaar] 50 mg PO DAILY 04/09/18 05/11/18 Montelukast [Singulair] 10 mg PO HS 04/09/18 05/11/18 Tamsulosin [Flomax] 0.4 mg PO DAILY 04/09/18 05/11/18 buPROPion XL [Wellbutrin XL] 300 mg PO QAM 04/09/18 05/11/18 metFORMIN [glucOPHAGE] 500 mg PO BID 04/09/18 05/11/18 Review of Systems - Physician Review All systems were reviewed & negative as marked: Yes - Review of Systems Constitutional: absent: Fevers Respiratory: absent: SOB, Cough Gastrointestinal: Vomiting. absent: Abdominal Pain, Stool Changes, Diarrhea, Nausea Genitourinary Male: absent: Urinary Output Changes Musculoskeletal: absent: Back Pain, Neck Pain Neurological: Dizziness. absent: Headache Physical Exam Vital Signs Reviewed: Yes Vital Signs Temp Pulse Resp BP Pulse Ox 06/01/18 01:22 98.1 F 97 H 19 120/50 L 98 06/01/18 00:08 98.1 F 109 H 18 121/64 95 05/31/18 22:16 120 H 20 126/58 L 91 L Blood Pressure: Hypertensive Pulse: Tachycardic Respiratory Rate: Normal Appearance: Positive for: Well-Appearing, Non-Toxic, Comfortable Pain Distress: None Mental Status: Positive for: Alert and Oriented X 3 - Systems Exam Head: Present: Atraumatic, Normocephalic Pupils: Present: PERRL Extroacular Muscles: Present: EOMI Conjunctiva: Present: Normal Mouth: Present: Moist Mucous Membranes Neck: Present: Normal Range of Motion Respiratory/Chest: Present: Clear to Auscultation, Good Air Exchange. No: Respiratory Distress, Accessory Muscle Use Cardiovascular: Present: Normal S1, S2, Tachycardic. No: Murmurs Abdomen: Present: Normal Bowel Sounds (Positive bowel sounds), Other (Abdomen globus. ). No: Tenderness, Distention, Peritoneal Signs Back: Present: Normal Inspection Upper Extremity: Present: Normal Inspection. No: Cyanosis, Edema Lower Extremity: Present: Normal Inspection. No: Edema Neurological: Present: GCS=15, CN II-XII Intact, Speech Normal Skin: Present: Warm, Dry, Normal Color. No: Rashes Psychiatric: Present: Alert, Oriented x 3, Normal Insight, Normal Concentration Medical Decision Making ED Course and Treatment: 05/31/18 22:48 Impression: A 67 year old male presents to the emergency department for further evaluation of dizziness which caused him to fall. Plan: -- Head CT -- EKG -- Chest X- Ray -- Labs -- Blood/ Urine Culture -- Urinalysis -- Reassess and disposition Progress Notes: 05/31/18 22:57 EKG: Ordered, reviewed, and independently interpreted the EKG. Rate :117 BPM Rhythm : Sinus Tachycardia Interpretation : No acute changes 05/31/18 23:57: Code sepsis called. CT Head Without Intravenous Contrast Dictated and Authenticated by: Ovi Gonzalez MD 06/01/2018 12:47 AM Eastern Time ([place]) EXAM DATE/TIME: 05/31/2018 12:00 AM IMPRESSION: 1. No evidence of acute large vessel infarction. 2. No evidence of acute intracranial hemorrhage, extraxial fluid or midline shift. 3. Mild cerebral atrophy. 06/01/18 00:52: Chest X- Ray read and interpreted by me shows no acute processes. CT Angiography Chest With Intravenous Contrast Dictated and Authenticated by: Dima Pompa MD 06/01/2018 1:43 AM Eastern Time ([place]) IMPRESSION: 1. No evidence of acute pulmonary embolism up to the major segmental level.One or more very small peripheral pulmonary emboli cannot be excluded. Correlate clinically. 2. The ascending aorta is aneurysmal measuring up to 4.1 cm. 3. Subsegmental atelectasis/scarring lingula and right lung base. 4 mm nodule in the left upper lobe, unchanged. CT Abdomen and Pelvis With Intravenous Contrast Dictated and Authenticated by: Dima Pompa MD 06/01/2018 1:46 AM Eastern Time ([place]) IMPRESSION: 1. Enlarged prostate. Correlate with physical examination and PSA levels. Underlying neoplasm is not excluded. 2. Subcutaneous soft tissue thickening noted in the periumbilical region extending to the intraabdominal opacity. Correlate for post intervention changes versus infectious/inflammatory process. 06/01/18 02:08: Case discussed in detail with Dr. Young who accepts the patient to her service. 06/01/18 02:17 - Lab Interpretations Lab Results: 05/31/18 23:18 05/31/18 23:18 Lab Results 05/31/18 23:26: pO2 37, VBG pH 7.37, VBG pCO2 45.0, VBG HCO3 26.0, VBG Total CO2 27.4, VBG O2 Sat (Calc) 74.6 H, VBG Base Excess 0.3, VBG Potassium 4.3, Glucose 246 H, Lactate 3.6 H, FiO2 21.0, Sodium 138.0, Chloride 102.0, Venous Blood Potassium 4.3 05/31/18 23:18: WBC 17.4 H D, RBC 4.46, Hgb 13.2 L, Hct 39.4 L, MCV 88.3, MCH 29.6, MCHC 33.5, RDW 14.6 H, Plt Count 277, MPV 8.6 05/31/18 23:18: Sodium 141, Potassium 4.4, Chloride 100, Carbon Dioxide 25, Anion Gap 20, BUN 23 H, Creatinine 1.0, Est GFR ( Amer) > 60, Est GFR ( Non-Af Amer) > 60, Random Glucose 244 H, Calcium 10.3, Total Bilirubin 0.5, AST 24, ALT 14, Alkaline Phosphatase 93, Lactate Dehydrogenase 350, Total Creatine Kinase 103, Troponin I < 0.01, Total Protein 7.8, Albumin 4.4, Globulin 3.4, Albumin/Globulin Ratio 1.3 05/31/18 23:18: PT 11.7, INR 1.03, APTT 32.2 I have reviewed the lab results: Yes - RAD Interpretation Radiology Orders: 05/31/18 HEAD W/O CONTRAST [CT] Stat 05/31/18 22:43 CHEST PORTABLE [RAD] Stat 06/01/18 00:00 ABD & PELVIS IV CONTRAST ONLY [CT] Stat ANGIO CHEST PE PROTOCOL [CT] Stat - EKG Interpretation Interpreted by ED Physician: Yes Type: 12 lead EKG - Medication Orders Current Medication Orders: Discontinued Medications Sodium Chloride (Sodium Chloride 0.9%) 1,000 mls @ 999 mls/hr IV .Q1H1M STA Stop: 06/01/18 00:59 Last Admin: 06/01/18 00:08 Dose: 999 mls/hr eMAR Start Stop Document 06/01/18 00:08 OCS (Rec: 06/01/18 00:08 OCS [id number]) Intravenous Solution Start Date 06/01/18 Start Time 00:08 End Date 06/01/18 End time 01:08 Total Infusion Time 60 Vancomycin HCl (Vancomycin 1gm) 1 gm in 250 mls @ 167 mls/hr IVPB STAT STA PRN Reason: Protocol Stop: 06/01/18 01:30 Last Admin: 06/01/18 01:28 Dose: 167 mls/hr eMAR Start Stop Document 06/01/18 01:28 OCS (Rec: 06/01/18 01:28 OCS [id number]) Intravenous Solution Start Date 06/01/18 Start Time 01:28 End Date 06/01/18 End time 02:58 Total Infusion Time 90 Piperacillin Sod/Tazobactam Sod (Zosyn 3.375 In Ns 100ml) 100 mls @ 200 mls/hr IV STAT STA PRN Reason: Protocol Stop: 06/01/18 00:33 Last Admin: 06/01/18 00:19 Dose: 200 mls/hr eMAR Start Stop Document 06/01/18 00:19 OCS (Rec: 06/01/18 00:19 OCS [id number]) Intravenous Solution Start Date 06/01/18 Start Time 00:19 End Date 06/01/18 End time 00:49 Total Infusion Time 30 - Scribe Statement The provider has reviewed the documentation as recorded by the Scribe Ana Roldan Provider Scribe Attestation: All medical record entries made by the Scribe were at my direction and personally dictated by me. I have reviewed the chart and agree that the record accurately reflects my personal performance of the history, physical exam, medical decision making, and the department course for this patient. I have also personally directed, reviewed, and agree with the discharge instructions and disposition. Disposition/Present on Arrival - Present on Arrival Any Indicators Present on Arrival: No History of DVT/PE: No History of Uncontrolled Diabetes: No Urinary Catheter: No History of Decub. Ulcer: No History Surgical Site Infection Following: None - Disposition Have Diagnosis and Disposition been Completed?: Yes Diagnosis: Sepsis Disposition: HOSPITALIZED Disposition Time: 02:24 Patient Plan: Admission Condition: STABLE Discharge Instructions (ExitCare): Sepsis (ED) Referrals: Sarah Young MD [Primary Care Provider] - Follow up with primary Forms: [employer]pulse (Faroese)
[2018-05-31 23:31] LABS: VENOUS BLOOD GAS BASE EXCESS 0.3 mmol/L (0.0-2.0); VENOUS BLOOD GAS PO2 37 mm/Hg (30-55); VENOUS BLOOD PH 7.37 (7.32-7.43)
[2018-05-31 23:34] LABS: HEMOGLOBIN 13.2 g/dL (14.0-18.0); MEAN CELL VOLUME 88.3 fl (80.0-105.0); MEAN CORPUSCULAR HEMOGLOBIN 29.6 pg (25.0-35.0); MEAN CORPUSCULAR HGB CONC 33.5 g/dl (31.0-37.0); MEAN PLATELET VOLUME 8.6 fl (7.0-11.0); RBC 4.46 10^6/uL (3.5-6.1); RED CELL DISTRIBUTION WIDTH 14.6 % (11.5-14.5); WHITE BLOOD COUNT 17.4 10^3/ul (4.5-11.0)
[2018-05-31 23:43] LABS: INR 1.03; PARTIAL THROMBOPLASTIN TIME 32.2 Seconds (25.1-36.5); PROTHROMBIN TIME 11.7 SECONDS (9.4-12.5)
[2018-05-31 23:49] LABS: ALB/GLOB RATIO 1.3 (1.1-1.8); ALBUMIN 4.4 g/dL (3.0-4.8); ALT/SGPT 14 U/L (7-56); AST/SGOT 24 U/L (17-59); BLOOD UREA NITROGEN 23 mg/dL (7-21); CALCIUM 10.3 mg/dL (8.4-10.5); GFR AFRICAN-AMERICAN > 60; GFR NON-AFRICAN AMERICAN > 60
[2018-05-31 23:52] LABS: TROPONIN I < 0.01 ng/mL
[2018-05-31] MEDS ORDERED: Sodium Chloride 0.9% 1,000 ML IV STA (23:59)
[2018-06-01] MEDS ORDERED: Vancomycin 1gm in NS 250ml 1 GM/250 ML BAG IVPB STA (00:01)
[2018-06-01] MEDS ORDERED: Piperacillin/Tazobact 3.375 gm 100 ML IV STA (00:04)
[2018-06-01 00:11] VITALS: TEMP 98.1
[2018-06-01 01:31] VITALS: BP 120/50; PULSE 97; RESP 19; O2SAT 98
[2018-06-01] MEDS ORDERED: Sodium Chloride 0.9% 1,000 ML IV STA (02:25)
--- NOTE | 2018-06-01 07:57 | CT ---
Date of service: 05/31/2018 PROCEDURE: CT HEAD WITHOUT CONTRAST. HISTORY: dizzy/fall COMPARISON: 08/31/2012 TECHNIQUE: Axial computed tomography images were obtained through the head/brain without intravenous contrast. Radiation dose: Total exam DLP = 1011 mGy-cm. This CT exam was performed using one or more of the following dose reduction techniques: Automated exposure control, adjustment of the mA and/or kV according to patient size, and/or use of iterative reconstruction technique. FINDINGS: HEMORRHAGE: No intracranial hemorrhage. BRAIN: No mass effect or edema. Mild microvascular changes and mild atrophy VENTRICLES: Unremarkable. No hydrocephalus. CALVARIUM: Unremarkable. PARANASAL SINUSES: Unremarkable as visualized. No significant inflammatory changes. MASTOID AIR CELLS: Unremarkable as visualized. No inflammatory changes. OTHER FINDINGS: The report concurs with the preliminary [facility] report IMPRESSION: No acute findings
--- NOTE | 2018-06-01 08:02 | CT ---
Date of service: 06/01/2018 PROCEDURE: CT Chest with contrast (Pulmonary Angiogram) HISTORY: sepsis/r/o PE/pneumonia COMPARISON: None available. TECHNIQUE: Axial computed tomography images were obtained of the chest in the pulmonary arterial phase of enhancement. Coronal and sagittal reformatted images were created and reviewed. Intravenous contrast dose: 150 cc of Omni 350 Radiation dose: Total exam DLP = 586 mGy-cm. This CT exam was performed using one or more of the following dose reduction techniques: Automated exposure control, adjustment of the mA and/or kV according to patient size, and/or use of iterative reconstruction technique. FINDINGS: PULMONARY ARTERIES: Unremarkable. No pulmonary embolism. AORTA: No acute findings. No thoracic aortic aneurysm. The ascending aorta is mildly dilated measuring 4 cm LUNGS: Linear atelectasis or scarring at both lung bases PLEURAL SPACES: Unremarkable. No effusion or pneumothorax. HEART: Unremarkable. No cardiomegaly. No significant pericardial effusion. LYMPH NODES: No lymphadenopathy. BONES, CHEST WALL: Unremarkable. No fracture or destructive lesion OTHER FINDINGS: The report concurs with the preliminary [facility] report IMPRESSION: No evidence of pulmonary embolus
--- NOTE | 2018-06-01 08:08 | CT ---
Date of service: 06/01/2018 PROCEDURE: CT Abdomen and Pelvis with contrast HISTORY: sepsis COMPARISON: None. TECHNIQUE: Contrast dose: 100 cc of Omni 350 Radiation dose: Total exam DLP = 1152 mGy-cm. This CT exam was performed using one or more of the following dose reduction techniques: Automated exposure control, adjustment of the mA and/or kV according to patient size, and/or use of iterative reconstruction technique. FINDINGS: LOWER THORAX: Unremarkable. LIVER: Unremarkable. No gross lesion or ductal dilatation. GALLBLADDER AND BILE DUCTS: Unremarkable. PANCREAS: Unremarkable. No gross lesion or ductal dilatation. SPLEEN: Unremarkable. ADRENALS: Unremarkable. No mass. KIDNEYS AND URETERS: Unremarkable. No hydronephrosis. No solid mass. VASCULATURE: Unremarkable. No aortic aneurysm. BOWEL: Unremarkable. No obstruction. No gross mural thickening. APPENDIX: Normal appendix. PERITONEUM: Unremarkable. No free fluid. No free air. LYMPH NODES: Unremarkable. No enlarged lymph nodes. BLADDER: Unremarkable. REPRODUCTIVE: There is severe enlargement of the prostate which measures 8.6 cm in height by 7.1 cm wide by 6.7 cm AP BONES: No acute fracture. OTHER FINDINGS: The report concurs with the preliminary [facility] report IMPRESSION: No acute intra-abdominal findings. Severe enlargement of the prostate
--- NOTE | 2018-06-01 10:07 | RAD ---
Date of service: 05/31/2018 HISTORY: dizzy COMPARISON: 08/31/2012 FINDINGS: LUNGS: Minimal linear scar/ atelectasis at right base. No acute infiltrate. PLEURA: No significant pleural effusion identified, no pneumothorax apparent. CARDIOVASCULAR: Normal. OSSEOUS STRUCTURES: No significant abnormalities. VISUALIZED UPPER ABDOMEN: Normal. OTHER FINDINGS: None. IMPRESSION: No active disease.
--- NOTE | 2018-06-01 15:37 | CARD ---
APPROVED REPORT Date of service: 05/31/2018 EKG Measurement Heart [id number] [id number] <Conclusion> Sinus tachycardia Otherwise normal ECG
== END 2018-06-01 04:25 | disposition left against medical advice (07) ==
LOC: ED 21:49 → UNDOADMIN 06-01 02:22 → ERH 06-01 02:22
DX: A41.9 Sepsis, unspecified organism (principal)
CPT/HCPCS: 70450; 71045; 71275; 74177; 80053; 82550; 82803; 83615; 84484; 85027; 85610; 85730; 87040; 93005; 96365; 96367; 99285; J2543; J7030; Q9967